=== PATIENT | male | born 1945 | race Caucasian/White ===

== ENCOUNTER 2021-11-29 15:09 | Inpatient (IN) ==
[2021-11-29 17:11] LABS: Basophils % 0.3 %; Eosinophils # 0.2 K/mcL (0.0-0.6); Eosinophils % 2.8 %; Hematocrit 37.4 % (37.5-50.1); Hemoglobin 11.7 g/dL (12.9-16.9); Immature Granulocytes % 0.3 % (0-4); Lymphocytes # 0.5 K/mcL (0.6-4.6); Lymphocytes % 8.7 %; Mean Corpuscular HGB Conc 31.3 g/dL (31.6-35.5); Mean Corpuscular Hemoglobin 31.3 pg (28.0-33.3); Mean Platelet Volume 10.4 fL (9.4-12.4); Monocytes # 0.5 K/mcL (0.0-1.3); Monocytes % 8.9 %; Neutrophils # 4.8 K/mcL (1.6-8.9); Platelet Count 217 K/mcL (140-400); Red Blood Count 3.74 M/mcL (4.19-5.50); Red Cell Distribution Width 12.9 % (11.5-14.5); White Blood Count 6.1 K/mcL (4.3-11.1)
[2021-11-29 17:32] LABS: BUN/Creatinine Ratio 17 (6-26); Blood Urea Nitrogen 12 mg/dL (8-23); Calcium 8.6 mg/dL (8.6-10.3); Carbon Dioxide 41 mEq/L (23-29); Chloride 92 mEq/L (98-107); Glucose 181 mg/dL (70-105); Osmolality,Calculated 286 (280-300); Potassium 3.9 mEq/L (3.5-5.1); Sodium 136 mEq/L (136-145); Troponin I < 0.03 ng/mL (< 0.04); eGFR For African Americans > 60 (> 60); eGFR For Non-African Americans > 60 (> 60)
[2021-11-29] MEDS ORDERED: Ipratropium/Albuterol Neb 3 ML IH ONE (17:38)
[2021-11-29] MEDS ORDERED: methylPREDNISolone 125 MG/2 ML VIAL IVP ONE (17:41)
[2021-11-29 18:21] LABS: Bilirubin,Urine Negative (Negative); Blood,Urine Negative (Negative); Clarity,Urine Clear (Clear); Color,Urine Colorless (Yellow); Glucose,Urine (UA) Normal (Normal); Ketones,Urine Negative (Negative); Leukocyte Esterase,Urine Negative (Negative); Nitrite,Urine Negative (Negative); Protein,Urine Negative (Neg-Trace); Specific Gravity,Urine 1.006 (1.010-1.025); Urobilinogen,Urine Normal (Normal)
[2021-11-29 19:00] LABS: Influenza A PCR Negative (Negative); Influenza B PCR Negative (Negative); Resp. Syncytial Virus PCR Negative (Negative)
[2021-11-29 19:02] LABS: SARS-CoV-2 by PCR (In House) Negative (Negative)
[2021-11-29] MEDS: *HR* Enoxaparin 120 MG/0.8 ML SYRINGE SQ SCH (19:39)
[2021-11-29] MEDS ORDERED: Dextrose Gel 15 GM/37.5 ML TUBE PO PRN ×2 (22:36)
[2021-11-29] MEDS ORDERED: D5% in Water 1,000 ML IVC PRN (22:36)
[2021-11-29] MEDS ORDERED: *HR* Dextrose 50 % in Water (Syg) 50 ML SYRINGE IVP PRN (22:36)
[2021-11-29] MEDS ORDERED: Furosemide 20 MG/2 ML VIAL IVP ONE (22:39)
[2021-11-29] MEDS ORDERED: Perflutren Lipid Microsphere 1.3 ML in 0.9 % Sodium Chloride 8.7 ML IVP PRN (22:40)
[2021-11-29] MEDS ORDERED: Saline Nasal Spray 44 ML BOTTLE NS PRN (22:44)
[2021-11-29] MEDS ORDERED: Acetaminophen 325 MG TABLET PO PRN (22:58)
[2021-11-29] MEDS ORDERED: Naloxone 0.4 MG/ML INJ IVP PRN (22:58)
[2021-11-29] MEDS ORDERED: Azithromycin 500 MG in 0.9 % Sodium Chloride 250 ML IVPB SCH (23:00)
[2021-11-29] MEDS: Levalbuterol Neb 1.25 MG/3 ML IH SCH (23:09)
[2021-11-29 23:25] LABS: ABG Base Excess 11 mEq/L (-2 to 3); ABG HCO3 39 mEq/L (21-27); ABG Oxygen Saturation 99 % (95-98); ABG PCO2 65 mmHg (35-45); ABG PH 7.39 pH Units (7.32-7.45); ABG PO2 136 mmHg (85-104); ABG TCO2 41 mEq/L (20-26)
[2021-11-29] MEDS: Aspirin Enteric Coated 81 MG Tablet PO SCH (23:39)
[2021-11-29] MEDS: carvediloL 25 MG TABLET PO SCH (23:41)
[2021-11-29] MEDS: methylPREDNISolone 125 MG/2 ML VIAL IVP SCH (23:42)
[2021-11-29] MEDS: Insulin LISPRO 300 UNITS/3 ML VIAL SUBQ SCH (23:45)
[2021-11-30] MEDS: Levalbuterol Neb 1.25 MG/3 ML IH SCH ×4 (03:31→22:15)
[2021-11-30] MEDS: *HR* Enoxaparin 120 MG/0.8 ML SYRINGE SQ SCH ×2 (06:09→16:46)
[2021-11-30 08:12] LABS: Hematocrit 40.1 % (37.5-50.1); Hemoglobin 12.3 g/dL (12.9-16.9); Mean Corpuscular HGB Conc 30.7 g/dL (31.6-35.5); Mean Corpuscular Hemoglobin 30.8 pg (28.0-33.3); Mean Corpuscular Volume 100.3 fL (83.0-100.0); Mean Platelet Volume 9.9 fL (9.4-12.4); Platelet Count 223 K/mcL (140-400); Red Cell Distribution Width 12.9 % (11.5-14.5)
[2021-11-30 08:13] LABS: White Blood Count 9.2 K/mcL (4.3-11.1)
[2021-11-30 08:19] LABS: INR 1.2; Prothrombin Time 13.2 Seconds (9.4-12.1)
[2021-11-30 08:22] LABS: Activated Partial Thrombo Time 41.1 Seconds (26.0-36.0)
[2021-11-30 08:41] LABS: % Iron Saturation 21 % (20-55); BUN/Creatinine Ratio 22 (6-26); Blood Urea Nitrogen 17 mg/dL (8-23); Calcium 8.6 mg/dL (8.6-10.3); Carbon Dioxide 41 mEq/L (23-29); Chloride 92 mEq/L (98-107); Chol/HDL Ratio 5.7 (0-4.9); Cholesterol 97 mg/dL (< 200); Glucose 219 mg/dL (70-105); HDL Cholesterol 17 mg/dL (40-59); Iron 67 mcg/dL (65-175); LDL Cholesterol,Calculated 56 mg/dL (< 100); Magnesium 1.9 mg/dL (1.6-2.6); Osmolality,Calculated 290 (280-300); Potassium 4.1 mEq/L (3.5-5.1); Sodium 136 mEq/L (136-145); Transferrin 229 mg/dL (203-362); Triglycerides 121 mg/dL (< 150); Troponin I < 0.03 ng/mL (< 0.04); eGFR For African Americans > 60 (> 60); eGFR For Non-African Americans > 60 (> 60)
[2021-11-30] MEDS: amLODIPine 5 MG TABLET PO SCH (08:44)
[2021-11-30] MEDS: carvediloL 25 MG TABLET PO SCH ×2 (08:44→16:12)
[2021-11-30] MEDS: methylPREDNISolone 125 MG/2 ML VIAL IVP SCH ×2 (08:45→16:13)
[2021-11-30] MEDS: Insulin LISPRO 300 UNITS/3 ML VIAL SUBQ SCH ×4 (08:52→20:47)
[2021-11-30 08:56] LABS: Ferritin 292 ng/mL (20-250)
[2021-11-30 08:57] LABS: Folate 15.6 ng/mL (3.0-16.0)
[2021-11-30] MEDS: Losartan/HCTZ 50-12.5 TABLET PO SCH (08:58)
[2021-11-30] MEDS: Tiotropium 10 INH DOSE IH SCH (11:09)
[2021-11-30 13:22] LABS: Estimated Average Glucose 146 mg/dl; Hemoglobin A1C 6.7 %
[2021-11-30] MEDS ORDERED: amLODIPine 5 MG TABLET PO SCH (15:00)
[2021-11-30] MEDS ORDERED: levoFLOXacin 750 MG/150 ML 750 MG/150 ML BAG IVPB SCH (16:00)
[2021-11-30] MEDS: Sennosides/Docusate Sodium TABLET PO SCH (17:54)
[2021-11-30] MEDS: polyethylene glycoL 3350 17 GM POWD.PACK PO SCH (17:54)
[2021-11-30] MEDS: Temazepam 15 MG CAPSULE PO SCH (20:32)
[2021-11-30] MEDS: Aspirin Enteric Coated 81 MG Tablet PO SCH (20:33)
[2021-11-30] MEDS: Insulin DETEMIR 100 UNIT/ML X5UNITS SUBQ SCH (20:33)
[2021-11-30] MEDS: Azelastine 0.1% Nasal Spray 30 ML BOTTLE NS SCH (20:44)
[2021-11-30] MEDS: Budesonide/Formoterol 160/4.5 1 PUFF INH IH SCH (22:16)
[2021-12-01] MEDS: Levalbuterol Neb 1.25 MG/3 ML IH SCH ×4 (03:41→21:15)
[2021-12-01] MEDS: *HR* Enoxaparin 120 MG/0.8 ML SYRINGE SQ SCH (05:24)
[2021-12-01 06:24] LABS: Hematocrit 35.4 % (37.5-50.1); Hemoglobin 10.9 g/dL (12.9-16.9); Mean Corpuscular HGB Conc 30.8 g/dL (31.6-35.5); Mean Corpuscular Hemoglobin 30.4 pg (28.0-33.3); Mean Corpuscular Volume 98.6 fL (83.0-100.0); Mean Platelet Volume 10.2 fL (9.4-12.4); Platelet Count 228 K/mcL (140-400); Red Blood Count 3.59 M/mcL (4.19-5.50); Red Cell Distribution Width 12.8 % (11.5-14.5); White Blood Count 11.9 K/mcL (4.3-11.1)
[2021-12-01 06:46] LABS: BUN/Creatinine Ratio 34 (6-26); Blood Urea Nitrogen 24 mg/dL (8-23); Calcium 8.5 mg/dL (8.6-10.3); Carbon Dioxide 39 mEq/L (23-29); Chloride 90 mEq/L (98-107); Glucose 193 mg/dL (70-105); Magnesium 1.9 mg/dL (1.6-2.6); Osmolality,Calculated 289 (280-300); Potassium 3.9 mEq/L (3.5-5.1); Sodium 135 mEq/L (136-145); eGFR For African Americans > 60 (> 60); eGFR For Non-African Americans > 60 (> 60)
[2021-12-01 07:03] LABS: VBG HCO3 38 mEq/L (21-27); VBG PCO2 75 mmHg (41-51); VBG PH 7.31 pH Units (7.32-7.42); VBG PO2 102 mmHg (25-50)
[2021-12-01] MEDS ORDERED: Tiotropium 10 INH DOSE IH SCH (09:00)
[2021-12-01] MEDS: polyethylene glycoL 3350 17 GM POWD.PACK PO SCH (09:02)
[2021-12-01] MEDS: Pyridoxine (B-6) 50 MG TABLET PO SCH (09:02)
[2021-12-01] MEDS: amLODIPine 5 MG TABLET PO SCH (09:03)
[2021-12-01] MEDS: Sennosides/Docusate Sodium TABLET PO SCH ×2 (09:03→21:30)
[2021-12-01] MEDS: carvediloL 25 MG TABLET PO SCH ×2 (09:03→17:10)
[2021-12-01] MEDS: Losartan/HCTZ 50-12.5 TABLET PO SCH (09:03)
[2021-12-01] MEDS: Cholecalciferol (D-3) 1,000 UNIT (25MCG) TABLET PO SCH (09:03)
[2021-12-01] MEDS: Cyanocobalamin (B-12) 1,000 MCG TABLET PO SCH (09:04)
[2021-12-01] MEDS: Azelastine 0.1% Nasal Spray 30 ML BOTTLE NS SCH ×2 (09:11→21:30)
[2021-12-01] MEDS: Insulin DETEMIR 100 UNIT/ML X5UNITS SUBQ SCH ×2 (09:14→21:28)
[2021-12-01] MEDS: Tiotropium 10 INH DOSE IH SCH (09:43)
[2021-12-01] MEDS: Budesonide/Formoterol 160/4.5 1 PUFF INH IH SCH ×2 (09:47→21:15)
[2021-12-01] MEDS: cefTRIAXone 1,000 MG in 0.9 % Sodium Chloride Mini Bag 100 ML IVPB SCH (11:57)
[2021-12-01] MEDS: Insulin LISPRO 300 UNITS/3 ML VIAL SUBQ SCH ×3 (12:35→21:28)
[2021-12-01] MEDS: Doxycycline 100 MG in 0.9 % Sodium Chloride Mini Bag 100 ML IVPB SCH (17:05)
[2021-12-01] MEDS ORDERED: *HR* Enoxaparin 100 MG/ML SYRINGE SQ SCH (18:00)
[2021-12-01] MEDS: Temazepam 15 MG CAPSULE PO SCH (21:29)
[2021-12-01] MEDS: Aspirin Enteric Coated 81 MG Tablet PO SCH (21:30)
[2021-12-02] MEDS ORDERED: Acetaminophen/Aspirin/Caffeine TABLET PO ONE (01:35)
[2021-12-02] MEDS: Levalbuterol Neb 1.25 MG/3 ML IH SCH ×2 (04:02→10:21)
[2021-12-02 06:03] LABS: Basophils % 0.2 %; Eosinophils % 0.6 %; Hemoglobin 11.6 g/dL (12.9-16.9); Immature Granulocytes % 0.5 % (0-4); Lymphocytes # 1.4 K/mcL (0.6-4.6); Lymphocytes % 22.7 %; Mean Corpuscular HGB Conc 30.5 g/dL (31.6-35.5); Mean Corpuscular Hemoglobin 30.7 pg (28.0-33.3); Mean Corpuscular Volume 100.5 fL (83.0-100.0); Mean Platelet Volume 9.9 fL (9.4-12.4); Monocytes # 0.7 K/mcL (0.0-1.3); Monocytes % 10.8 %; Platelet Count 214 K/mcL (140-400); Red Blood Count 3.78 M/mcL (4.19-5.50); Red Cell Distribution Width 13.1 % (11.5-14.5); Segmented Neutrophils % 65.2 %; White Blood Count 6.2 K/mcL (4.3-11.1)
[2021-12-02] MEDS: Doxycycline 100 MG in 0.9 % Sodium Chloride Mini Bag 100 ML IVPB SCH (06:44)
[2021-12-02 07:15] LABS: BUN/Creatinine Ratio 29 (6-26); Blood Urea Nitrogen 22 mg/dL (8-23); Calcium 8.7 mg/dL (8.6-10.3); Carbon Dioxide > 45 mEq/L (23-29); Chloride 93 mEq/L (98-107); Glucose 97 mg/dL (70-105); Osmolality,Calculated 295 (280-300); Potassium 4.9 mEq/L (3.5-5.1); Sodium 141 mEq/L (136-145); eGFR For African Americans > 60 (> 60); eGFR For Non-African Americans > 60 (> 60)
[2021-12-02 08:12] LABS: ABG Base Excess 12 mEq/L (-2 to 3); ABG HCO3 42 mEq/L (21-27); ABG Oxygen Saturation 98 % (95-98); ABG PCO2 82 mmHg (35-45); ABG PH 7.32 pH Units (7.32-7.45); ABG PO2 112 mmHg (85-104); ABG TCO2 45 mEq/L (20-26)
[2021-12-02] MEDS: Pyridoxine (B-6) 50 MG TABLET PO SCH (08:45)
[2021-12-02] MEDS: Losartan/HCTZ 50-12.5 TABLET PO SCH (08:45)
[2021-12-02] MEDS: Cholecalciferol (D-3) 1,000 UNIT (25MCG) TABLET PO SCH (08:45)
[2021-12-02] MEDS: carvediloL 25 MG TABLET PO SCH (08:46)
[2021-12-02] MEDS: Sennosides/Docusate Sodium TABLET PO SCH (08:46)
[2021-12-02] MEDS: polyethylene glycoL 3350 17 GM POWD.PACK PO SCH (08:46)
[2021-12-02] MEDS: amLODIPine 5 MG TABLET PO SCH (08:46)
[2021-12-02] MEDS: cefTRIAXone 1,000 MG in 0.9 % Sodium Chloride Mini Bag 100 ML IVPB SCH (08:47)
[2021-12-02] MEDS: Insulin DETEMIR 100 UNIT/ML X5UNITS SUBQ SCH (08:56)
[2021-12-02] MEDS: Cyanocobalamin (B-12) 1,000 MCG TABLET PO SCH (09:05)
[2021-12-02] MEDS: Azelastine 0.1% Nasal Spray 30 ML BOTTLE NS SCH (09:45)
[2021-12-02] MEDS: Budesonide/Formoterol 160/4.5 1 PUFF INH IH SCH (10:21)
[2021-12-02] MEDS: Tiotropium 10 INH DOSE IH SCH (10:21)
[2021-12-02] MEDS ORDERED: Levalbuterol Neb 1.25 MG/3 ML IH PRN (10:49)
[2021-12-02] MEDS: Insulin LISPRO 300 UNITS/3 ML VIAL SUBQ SCH (12:08)
[2021-12-02 16:46] VITALS: BP 146/75; PULSE 63; TEMP 97.8; O2SAT 97
== END 2021-12-02 18:28 | disposition home or self-care (01) | DRG 193 ==
LOC: 3ANU 15:09 → EMEROOARM 15:09 → SUATTDRO 19:09 → 3ANU 19:58
PROVIDERS: ADMIT Family Medicine; ATTEND Pharmacist